=== PATIENT | male | born 1985 | race African-American/Black ===

== ENCOUNTER 2017-03-14 03:02 | Emergency (ER) | payer SELFPAY ==
[~2017-03-14] VITALS: Ht 188 cm; Wt 84.0 kg
[2017-03-14 03:17] VITALS: TEMP 36.5; Ht 188 cm; Wt 84.0 kg
[2017-03-14] MEDS ORDERED: LORAZEPAM 2 MG/ML 1 ML VIAL IM STA (03:18)
[2017-03-14] MEDS ORDERED: BENZTROPINE MESYLATE 1 MG/ML 2 ML AMP IM STA (03:18)
[2017-03-14] MEDS ORDERED: HALOPERIDOL LACTATE 5 MG/ML 1 ML VIAL IM STA (03:18)
[2017-03-14 03:38] LABS: BUN/CREATININE RATIO 8.1 (10-20); CALCIUM 8.8 mg/dl (8.5-10.1); CREATININE 1.1 mg/dl (0.60-1.40); POTASSIUM 4.2 mmol/L (3.5-5.1)
--- NOTE | 2017-03-14 03:40 | EMERGENCY ROOM VISIT NOTE ---
History Report prepared by Rose: Gonzalo Wren Under the Supervision of: Dr. Xavi Guallpa M.D. First contact with patient: 03:02 Stated Complaint: ALCOHOL OVERDOSE History of Present Illness The patient is a 31 year old male who presents to the Emergency Room for an alcohol overdose occurring prior to arrival. Per the EMS, the patient was found at [facility] drooling on himself and asleep. The staff was unable to wake him up, so the police were called. The history is limited secondary to intoxication. Source of History: EMS History Limited By: intoxication Onset: prior to arrival Position: other (global) Quality: other (alcohol overdose) Review of Systems See HPI for pertinent positives & negatives. A total of 10 systems reviewed and were otherwise negative. Social History Occupation Status: [employer] student Current/Historical Medications No Active Prescriptions or Reported Meds Allergies Coded Allergies: No Known Allergies (Unverified , 03/14/17) Physical Exam Vital Signs Date Time Temp Pulse Resp B/P (MAP) Pulse Ox O2 Delivery O2 Flow Rate FiO2 03/14/17 05:31 113/62 03/14/17 05:26 68 19 92 Room Air 03/14/17 05:01 113/62 03/14/17 04:56 70 20 91 Room Air 03/14/17 04:54 114/57 03/14/17 04:26 100 18 03/14/17 04:21 147/75 98 Room Air 03/14/17 03:32 104 15 03/14/17 03:24 Room Air 03/14/17 03:24 Room Air 03/14/17 03:17 36.5 95 18 133/89 97 Room Air 03/14/17 03:11 98 03/14/17 03:08 133/89 Physical Exam Vital signs reviewed. General: Odor of EtOH in the breath, disheveled 31-year-old male. No signs of trauma. HEENT: Mild scleral injection bilaterally, PERRLA, neck supple, dry mucous membranes. Cardiovascular: Regular rate and rhythm, no extra sounds. Pulmonary: Clear to auscultation bilaterally, normal work of breathing. Abdomen: Soft, nontender, nondistended, positive bowel sounds. Musculoskeletal: Upper and lower extremities atraumatic, no peripheral edema Skin: Warm, dry, no rash. Atraumatic. Neurologic: Patient is currently nonverbal. Medical Decision & Procedures Laboratory Results 03/14/17 03:12 Test 03/14/17 03:12 Anion Gap 4.0 mmol/L (3-11) Est Creatinine Clear Calc Drug Dose 113.2 ml/min Estimated GFR () 103.1 Estimated GFR (Non- 89.0 BUN/Creatinine Ratio 8.1 (10-20) Calcium Level 8.8 mg/dl (8.5-10.1) Ethyl Alcohol mg/dL 294.0 mg/dl (0-3) Medications Administered Medications (Trade) Dose Ordered Sig/Pamela Route Start Time Stop Time Status Last Admin Dose Admin Haloperidol Lactate (Haldol Inj) 10 mg NOW STAT IM 03/14/17 03:18 03/14/17 03:20 DC 03/14/17 03:46 10 MG Lorazepam (Ativan Inj) 2 mg NOW STAT IM 03/14/17 03:18 03/14/17 03:20 DC 03/14/17 03:45 2 MG Benztropine Mesylate (Cogentin Inj) 2 mg NOW STAT IM 03/14/17 03:18 03/14/17 03:20 DC 03/14/17 03:45 2 MG ED Course 0302: Past medical records reviewed. The patient was evaluated in room A10. A complete history and physical examination was performed. Medical Decision Differential diagnosis: Etiologies such as alcohol intoxication, toxicologic, infection, hypoglycemia, electrolyte abnormalities, cardiac sources, intracerebral event, neurologic, as well as others were entertained. This is a 31-year-old male who was found passed out at [place]. Based on this the police brought him to the emergency department. The patient began walking around naked as soon as he arrived in the emergency department and he was redirected several times to return to his room as he was becoming disruptive to other patients in the emergency department. The patient refused to follow commands and therefore the patient needed to be sedated in the emergency department. He was given Haldol and Cogentin and Ativan and had to be placed in restraints. The patient is risking a catastrophe. An alcohol level was drawn and was found to be grossly elevated. The patient will be discharged in the morning when he marie up. He was placed on the monitor in the prone position and aspiration precautions were taken. Impression Primary Impression: Alcohol intoxication Scribe Attestation The scribe's documentation has been prepared under my direction and personally reviewed by me in its entirety. I confirm that the note above accurately reflects all work, treatment, procedures, and medical decision making performed by me. Departure Information Dispostion Still a Patient Prescriptions No Active Prescriptions or Reported Meds Problem Qualifiers Primary Impression: Alcohol intoxication Complication of substance-induced condition: uncomplicated Qualified Codes: F10.920 - Alcohol use, unspecified with intoxication, uncomplicated
[2017-03-14] MEDS ORDERED: KETAMINE HCL INJ 50 MG/ML 10 ML VIAL IM STA (04:22)
[2017-03-14 11:45] VITALS: BP 134/82; PULSE 80; O2SAT 97
== END 2017-03-14 12:08 | disposition home or self-care (01) ==
LOC: C.EDA 03:05 → MERGE 03:05 → EDBD 03:05 → C.EDA 12:08
DX: F10.920 Alcohol use, unspecified with intoxication, uncomplicated (principal); Y90.8 Blood alcohol level of 240 mg/100 ml or more